=== PATIENT | female | born 1985 | race Caucasian/White ===

== ENCOUNTER 2019-01-14 06:00 | Inpatient (IN) | payer OTHER ==
[2019-01-14] MEDS ORDERED: TERBUTALINE 1 MG/ML VIAL SQ PRN (06:16)
[2019-01-14] MEDS ORDERED: METHYLERGONOVINE 0.2 MG/ML 1 ML AMP IM PRN (06:16)
[2019-01-14] MEDS ORDERED: LIDOCAINE 0.5% (PF) 5 MG/ML (50 ML SDV) SQ PRN (06:16)
[2019-01-14] MEDS ORDERED: CARBOPROST TROMETHAMINE 250 MCG/ML 1 ML AMP IM PRN (06:16)
[2019-01-14] MEDS ORDERED: OXYTOCIN 10 UNIT/ML 1 ML VIAL IM PRN (06:16)
[2019-01-14 06:28] VITALS: BMI 31.0
[2019-01-14] MEDS: LACTATED RINGERS 1,000 ML IV SCH ×2 (06:28→12:50)
[2019-01-14] MEDS ORDERED: OXYTOCIN 30 UNITS/500 ML NS 30 UNIT in SALINE 1 500ML.BAG IV SCH (06:30)
[2019-01-14 06:38] LABS: Basophils % (A) 0 %; Eosinophils # (A) 0.1 k/uL (0-0.7); Eosinophils % (A) 1 %; HGB 12.7 gm/dL (11.4-16.0); Lymphocytes # (A) 2.6 k/uL (1.0-4.8); Lymphocytes % (A) 33 %; MCH 29.9 pg (25.0-35.0); MCHC 33.4 g/dL (31.0-37.0); MCV 89.6 fL (80.0-100.0); Mean Platelet Volume 7.1; Monocytes # (A) 0.4 k/uL (0-1.0); Monocytes % (A) 5 %; Neutrophils # (A) 4.6 k/uL (1.3-7.7); Neutrophils % (A) 57 %; Platelet Count 198 k/uL (150-450); RBC 4.25 m/uL (3.80-5.40); WBC 8.1 k/uL (3.8-10.6)
[2019-01-14] MEDS ORDERED: BUTORPHANOL 1 MG/ML 1 ML VIAL IV PRN (12:24)
[2019-01-14] MEDS ORDERED: ROPIVACAINE 100 MG, fentaNYL (PF) 200 MCG in SODIUM CHLORIDE 0.9% 76 ML EPIDURAL ONE (14:38)
[2019-01-14] MEDS ORDERED: MEASLES-MUMPS-RUBELLA VACC/PF 12,500 UNIT/0.5 ML VIAL SQ ONE (17:34)
[2019-01-14] MEDS ORDERED: HYDROCORTISONE 2.5% RECTAL CREAM 30 GM TUBE RECTAL PRN (17:34)
[2019-01-14] MEDS ORDERED: LANOLIN CREAM 5 GM TUBE TOPICAL PRN (17:34)
[2019-01-14] MEDS ORDERED: diphenhydrAMINE 50 MG/ML 1 ML VIAL IVP PRN ×2 (17:34)
[2019-01-14] MEDS ORDERED: diphenhydrAMINE 50 MG CAP PO PRN (17:34)
[2019-01-14] MEDS ORDERED: ZOLPIDEM 5 MG TAB PO PRN (17:34)
[2019-01-14] MEDS ORDERED: diphenhydrAMINE 25 MG CAP PO PRN (17:34)
[2019-01-14] MEDS ORDERED: WITCH HAZEL 1 EACH MED..PAD TOPICAL PRN (17:34)
[2019-01-14] MEDS ORDERED: BENZOCAINE/MENTHOL SPRAY 1 GM/SPRAY AEROSOL TOPICAL PRN (17:34)
[2019-01-14] MEDS ORDERED: SIMETHICONE 80 MG CHEWABLE PO PRN (17:34)
[2019-01-14] MEDS ORDERED: ACETAMINOPHEN TAB 325 MG TAB PO PRN (17:34)
--- NOTE | 2019-01-14 17:40 | P.HPOB ---
History of Present Illness H&P Date: 01/14/19 Chief Complaint: IUP @ 40 0/7 weeks, IUGR 8%ile This is a pleasant 33-year-old 2 para 0010 at 40-0/7 weeks with an estimated due date of 423. Patient presents to the hospital for induction of labor secondary to intrauterine growth restriction. Patient has been followed closely with NSTs growth ultrasounds, testing. Patient is a known smoker. Patient has a known history of osteosarcoma. Patient did receive routine care with myself on blood work she had a blood type of O+, rubella nonimmune, hepatitis B surface antigen negative, HIV negative, RPR nonreactive, GBS negative. Upon admission she notes good movement she denies contractions loss of fluid or vaginal bleeding. Review of Systems Constitutional: Denies chills, Denies fatigue, Denies fever Ears, nose, mouth and throat: Denies headache Cardiovascular: Reports leg edema Respiratory: Denies dyspnea Gastrointestinal: Denies constipation, Denies diarrhea, Denies nausea, Denies vomiting Genitourinary: Reports Past Medical History Past Medical History: Cancer, Seizure Disorder Additional Past Medical History / Comment(s): seizure 2017, osteosarcoma at age 16 History of Any Multi-Drug Resistant Organisms: None Reported Past Surgical History: Orthopedic Surgery Additional Past Surgical History / Comment(s): left shoulder/arm Past Anesthesia/Blood Transfusion Reactions: No Reported Reaction Past Psychological History: Anxiety Additional Psychological History / Comment(s): disturbed sleeping Smoking Status: Current every day smoker Past Alcohol Use History: None Reported Past Drug Use History: None Reported - Past Family History Mother Family Medical History: Cancer Additional Family Medical History / Comment(s): skin cancer Father Family Medical History: Diabetes Mellitus, Osteoarthritis (OA) Medications and Allergies Home Medications Medication Instructions Recorded Confirmed Type Pnv,Calcium 72/Iron/Folic Acid 1 tab PO DAILY 11/21/18 01/14/19 History [ Plus Tablet] Allergies Allergy/AdvReac Type Severity Reaction Status Date / Time No Known Allergies Allergy Verified 01/14/19 06:15 Exam Osteopathic Statement: *. No significant issues noted on an osteopathic structural exam other than those noted in the History and Physical/Consult. Vital Signs Temp Pulse Resp BP Pulse Ox 01/14/19 17:21 97.4 F L 68 16 119/70 04/23/19 06:20 97.3 F L 89 16 113/66 99 Intake and Output 01/14/19 01/14/19 01/14/19 06:59 14:59 22:59 Other: Weight 89.811 kg Targeted physical exam was performed on this date in general this is a well- nourished well-developed alert female in no acute distress. Patient is noted to have nonlabored breathing heart is known to have a regular rate and rhythm abdomen is noted to be gravid and appropriate for gestational age on cervical exam she was noted to be 1-2 cm/50/-2 with a bulging bag of water amniotomy was performed and clear fluid was obtained. heart tones were noted to be reactive, category 1 and she was debora irregularly at this time. Results Result Diagrams: 01/14/19 06:20 Assessment and Plan (1) Term Current Visit: Yes Status: Acute Code(s): Z34.80 - ENCOUNTER FOR SUPRVSN OF NORMAL , UNSP TRIMESTER SNOMED Code(s): 31160965 (2) IUGR (intrauterine growth restriction) Current Visit: Yes Status: Acute Code(s): EOI1127 - SNOMED Code(s): 36798661 (3) Smoker Current Visit: Yes Status: Acute Code(s): F17.200 - NICOTINE DEPENDENCE, UNSPECIFIED, UNCOMPLICATED SNOMED Code(s): 52335799 Plan: Patient admitted to labor and delivery for Pitocin induction of labor. Patient does desire epidural and anesthesia will be notified once she is making cervical change and uncomfortable. Anticipate spontaneous vaginal delivery later today.
--- NOTE | 2019-01-14 17:42 | P.PROBDLV ---
Vaginal Delivery Note - . Vaginal Delivery Note: This very pleasant 33-year-old 2 para 0010 at 40-0/7 weeks presented to labor and delivery for induction of labor secondary to intrauterine growth restriction. Patient was admitted and induction of labor was begun with Pitocin. Patient underwent amniotomy and clear fluid was obtained. Patient became uncomfortable was noted to be 5 cm epidural was placed by anesthesia without difficulty. Patient progressed to complete began pushing and had a normal spontaneous vaginal delivery of a viable male at 1709, weight of 6 lbs. 5 oz. with Apgars of 9 and 9 at one and 5 minutes or sexually. was noted to have a loose nuchal cord upon delivery this was delivered through. After a two-minute delayed the local cord was doubly clamped and cut and the placenta was delivered spontaneously intact with a three-vessel cord being noted. The placenta was sent to pathology for analysis given her intrauterine growth Paoli. Afterwards the uterus was returned to be firm and below the umbilicus. On inspection the patient's vaginal vault a secondary midline laceration was noted this was repaired in the usual fashion with 3-0 Rapide. In addition hymenal laceration was noted in a [id number]-hi-ivubw suture 4-0 chromic was used to obtain hemostasis. Upon further inspection the vaginal vault hemostasis was appreciated no further bleeding was noted. Estimated blood loss for this delivery 400 mL, patient and tolerated delivery well and are resting comfortably.
[2019-01-14] MEDS ORDERED: OXYTOCIN 20 UNITS/1000 ML NS 1,000 ML IV SCH (17:45)
[2019-01-14] MEDS: SENNOSIDES-DOCUSATE SODIUM 1 EACH TAB PO SCH (21:37)
[2019-01-14] MEDS: HYDROcodone/APAP 5-325MG 1 EACH TAB PO PRN (21:47)
[2019-01-14] MEDS: IBUPROFEN 600 MG TAB PO PRN (23:01)
[2019-01-14 23:54] VITALS: RESP 18
[2019-01-15] MEDS: HYDROcodone/APAP 5-325MG 1 EACH TAB PO PRN ×4 (02:26→15:41)
[2019-01-15] MEDS: SENNOSIDES-DOCUSATE SODIUM 1 EACH TAB PO SCH (07:35)
[2019-01-15 07:39] LABS: Basophils % (A) 0 %; Eosinophils # (A) 0.1 k/uL (0-0.7); Eosinophils % (A) 1 %; HCT 34.3 % (34.0-46.0); HGB 11.1 gm/dL (11.4-16.0); Lymphocytes # (A) 2.5 k/uL (1.0-4.8); Lymphocytes % (A) 27 %; MCH 28.7 pg (25.0-35.0); MCHC 32.3 g/dL (31.0-37.0); MCV 89.1 fL (80.0-100.0); Mean Platelet Volume 7.4; Monocytes # (A) 0.5 k/uL (0-1.0); Monocytes % (A) 6 %; Neutrophils # (A) 6.1 k/uL (1.3-7.7); Neutrophils % (A) 64 %; Platelet Count 190 k/uL (150-450); RBC 3.85 m/uL (3.80-5.40); RDW 15.4 % (11.5-15.5); WBC 9.5 k/uL (3.8-10.6)
--- NOTE | 2019-01-15 08:29 | P.DS ---
Providers Date of admission: 01/14/19 06:03 Expected date of discharge: 01/15/19 Attending physician: Mel Lyons Primary care physician: Stated None - Discharge Diagnosis(es) (1) Term Current Visit: Yes Status: Acute (2) IUGR (intrauterine growth restriction) Current Visit: Yes Status: Acute (3) Smoker Current Visit: Yes Status: Acute Hospital Course: This is a pleasant 33-year-old female 2 para 0010 at 40-0/7 weeks that presented to labor and delivery for induction of labor secondary to intrauterine growth restriction. Patient being being followed closely throughout the with growth/ testing. Grossly continued on the 8th percentile curve throughout the . Patient was admitted Pitocin induction of labor was begun. Once regular contractions were noted amniotomy was performed clear fluid was obtained. Patient progressed through labor becoming uncomfortable and requesting epidural placement. Anesthesia placed epidural without difficulty. Patient progressed to complete began pushing and had a normal spontaneous vaginal delivery of a viable male at 1709, weight of 6 lbs. 5 oz. with Apgars of 9 and 9 at one and 5 minutes respectively. Patient did sustain a second-degree midline laceration during delivery this was repaired in the usual fashion with 3-0 repeat. Patient's course has been uneventful. On this day #1 she is a bleeding and voiding without difficulty she is tolerating a regular diet without nausea or vomiting. She denies concerns. Plan - Discharge Summary New Discharge Prescriptions: No Action Pnv,Calcium 72/Iron/Folic Acid [ Plus Tablet] 1 tab PO DAILY Discharge Medication List Pnv,Calcium 72/Iron/Folic Acid [ Plus Tablet] 1 tab PO DAILY 11/21/18 [History] Follow up Appointment(s)/Referral(s): Mel Lyons DO [Doctor of Osteopathic Medicine] - 4 Weeks Patient Instructions/Handouts: Vaginal Delivery (DC), Vaginal Delivery (GEN) Discharge Disposition: HOME SELF-CARE
[2019-01-15] MEDS ORDERED: PRENATAL VIT-IRON-FOLIC ACID 1 EACH CAP PO SCH (09:00)
[2019-01-15] MEDS: IBUPROFEN 600 MG TAB PO PRN (09:23)
[2019-01-15 16:32] VITALS: BP 106/58; PULSE 83; TEMP 98
== END 2019-01-15 17:50 | disposition home or self-care (01) | DRG 806 ==
LOC: 4FBP 06:03
PROVIDERS: ADMIT Obstetrics & Gynecology Obstetrics; ATTEND Obstetrics & Gynecology Obstetrics
PROC: 10E0XZZ Delivery of Products of Conception, External Approach (ICD-10-PCS; principal; 2019-01-14)
PROC: 0KQM0ZZ Repair Perineum Muscle, Open Approach (ICD-10-PCS; 2019-01-14)
PROC: 00HU33Z Insertion of Infusion Device into Spinal Canal, Percutaneous Approach (ICD-10-PCS; 2019-01-14)
PROC: 3E0R3BZ Introduction of Anesthetic Agent into Spinal Canal, Percutaneous Approach (ICD-10-PCS; 2019-01-14)
PROC: 10907ZC Drainage of Amniotic Fluid, Therapeutic from Products of Conception, Via Natural or Artificial Opening (ICD-10-PCS; 2019-01-14)
PROC: 3E033VJ Introduction of Other Hormone into Peripheral Vein, Percutaneous Approach (ICD-10-PCS; 2019-01-14)
DX: O36.5930 Maternal care for other known or suspected poor fetal growth, third trimester, not applicable or unspecified (principal); O99.354 Diseases of the nervous system complicating childbirth; Z37.0 Single live birth; G40.909 Epilepsy, unspecified, not intractable, without status epilepticus; O99.344 Other mental disorders complicating childbirth; O69.81X0 Labor and delivery complicated by cord around neck, without compression, not applicable or unspecified; O99.334 Smoking (tobacco) complicating childbirth; F41.9 Anxiety disorder, unspecified; F17.200 Nicotine dependence, unspecified, uncomplicated; O70.1 Second degree perineal laceration during delivery; O99.62 Diseases of the digestive system complicating childbirth; K21.9 Gastro-esophageal reflux disease without esophagitis; Z3A.40 40 weeks gestation of pregnancy; Z85.830 Personal history of malignant neoplasm of bone; Z80.8 Family history of malignant neoplasm of other organs or systems; Z83.3 Family history of diabetes mellitus; Z82.61 Family history of arthritis
CPT/HCPCS: 85025; 86850; 86900; 86901; 88307; 90707

== ENCOUNTER → 2022-08-09 | Outpatient (CLI) | payer OTHER ==
--- NOTE | 2022-08-09 14:12 | XR ---
EXAMINATION TYPE: XR lumbosacral spine min 4V DATE OF EXAM: 08/09/2022 CLINICAL HISTORY: Low back pain TECHNIQUE: Frontal, lateral, and oblique images of the lumbar spine are obtained. COMPARISON: None. FINDINGS: There are 5 lumbar type vertebral bodies identified. The lumbar spine shows satisfactory alignment without evidence of acute fracture or dislocation. Moderate disc space narrowing L5-S1 leve l with mild anterior spurring of the right vertebral body heights and disk space heights are within n ormal limits. The oblique images appear within normal limits. The overlying soft tissue appears un remarkable. IMPRESSION: As above.
== END | disposition home or self-care (01) ==
LOC: RADXRYALE 13:52
PROVIDERS: ATTEND Internal Medicine
DX: M51.37 Other intervertebral disc degeneration, lumbosacral region (principal); M54.50 Low back pain, unspecified
CPT/HCPCS: 72110

== ENCOUNTER → 2025-04-21 | Outpatient (CLI) | payer OTHER ==
--- NOTE | 2025-04-21 13:48 | XR ---
EXAMINATION TYPE: XR lumbar spine 2 or 3V DATE OF EXAM: 04/21/2025 1:34 PM COMPARISON: None. CLINICAL INDICATION: Female, 39 years old with history of M54.50 LOW BACK PAIN, UNSPECIFIED; TECHNIQUE: XR lumbar spine 2 or 3V views are submitted. FINDINGS: Alignment is anatomic. The pedicles are intact. The transverse processes are intact. Moderate to s evere degenerative disc disease L5-S1. Multilevel facet arthropathy. There is no spondylolysis or spo ndylolisthesis. IMPRESSION: 1. Moderate to severe degenerative disc disease L5-S1.. [facility], , 04/21/2025 1:46 PM
== END | disposition home or self-care (01) ==
LOC: RADXRMAIN 13:14
PROVIDERS: ATTEND Family Medicine
DX: M51.370 Other intervertebral disc degeneration, lumbosacral region with discogenic back pain only (principal)
CPT/HCPCS: 72100